=== PATIENT | male | born 1990 | race Asian ===

== ENCOUNTER 2017-08-03 22:07 | Emergency (ER) | payer SELFPAY ==
[~2017-08-03] VITALS: Ht 167.6 cm; Wt 86.2 kg
[2017-08-03 22:23] VITALS: BP_SYST 160
[2017-08-03 23:25] VITALS: BP_SYST 134
== END 2017-08-03 23:25 | disposition home or self-care (01) ==
LOC: SED 22:07
DX: L03.116 Cellulitis of left lower limb (principal)
CPT/HCPCS: 99284